=== PATIENT | male | born 1950 | race Two or more races ===

== ENCOUNTER 2020-08-16 21:40 | Emergency (ER) | payer OTHER ==
[2020-08-16 21:46] VITALS: BMI 27.4
[2020-08-16] MEDS ORDERED: MAG HYDROX/AL HYDROX/SIMETH 30 ML UNIT-DOSE CUP PO ONE (22:36)
[2020-08-16] MEDS ORDERED: FAMOTIDINE 20 MG/50 ML IVPB 20 MG/50 ML MG IVPB ONE ×2 (22:36→22:45)
[2020-08-16] MEDS ORDERED: ACETAMINOPHEN 325 MG TABLET (FP) PO ONE (22:38)
[2020-08-16] MEDS ORDERED: MAG HYDROX/AL HYDROX/SIMETH 30 ML UNIT-DOSE CUP ONE (22:45)
[2020-08-16 23:49] LABS: BASO % 0.5 % (0-2.0); EOS % 0.7 % (0-4.5); HEMATOCRIT 43.9 % (35.4-49); HEMOGLOBIN 15.2 GM/dL (11.7-16.9); LYMPH % 27.6 % (8-40); MCH 32.2 pg (25.7-33.7); MCHC 34.6 g/dl (32.0-35.9); MEAN CELL VOLUME 93.2 fl (80-96); MEAN PLT VOLUME 10.1 fl (7.5-11.1); MONO % 7.7 % (3.8-10.2); NEUT % 63.5 % (42.8-82.8); PLATELET COUNT 190 K/MM3 (134-434); RDW 12.7 % (11.9-15.9); WHITE BLOOD COUNT 6.5 K/mm3 (4.0-10.0)
[2020-08-16 23:52] LABS: CHLORIDE 101 mmol/L (98-107); SODIUM 136 mmol/L (136-145)
[2020-08-16 23:54] LABS: CALCIUM 9.1 mg/dL (8.5-10.1)
[2020-08-16 23:55] LABS: ALBUMIN 4.4 g/dl (3.4-5.0); ANION GAP 8 MMOL/L (8-16); BLOOD UREA NITROGEN 15.8 mg/dL (7-18); CO2 26 mmol/L (21-32); GLUCOSE,RANDOM 174 mg/dL (74-106); LIPASE 203 U/L (73-393)
[2020-08-16 23:58] LABS: CREATININE 1.2 mg/dL (0.55-1.3); SGOT/AST 424 U/L (15-37); SGPT/ALT 388 U/L (13-61)
[2020-08-17] LABS: BILIRUBIN,TOTAL 2.4 mg/dL (0.2-1); TOT PROT 8.4 g/dl (6.4-8.2)
[2020-08-17 00:01] LABS: ALK PHOS 119 U/L (45-117)
[2020-08-17 01:28] VITALS: BP 133/94; PULSE 90; TEMP 98.8
[2020-08-17 08:04] LABS: BILIRUBIN,DIRECT 1.6 mg/dL (0.0-0.2)
== END 2020-08-17 01:49 | disposition home or self-care (01) ==
LOC: JER 21:40
PROC: 3E033GC Introduction of Other Therapeutic Substance into Peripheral Vein, Percutaneous Approach (ICD-10-PCS; principal; 2020-08-16)
DX: R10.13 Epigastric pain (principal); R74.01 Elevation of levels of liver transaminase levels; K80.20 Calculus of gallbladder without cholecystitis without obstruction
CPT/HCPCS: 36415; 76705-TC; 80053; 82248; 83690; 84484; 85025; 93005; 93010; 99285-25